=== PATIENT | male | born 1990 | race Native Hawaiian/Other Pacific Islander ===

== ENCOUNTER 2022-02-11 18:50 | Emergency (ER) | payer OTHER ==
[2022-02-11] MEDS ORDERED: LIDOCAINE 1% 2 ML VIAL MC ONE (20:02)
[2022-02-11] MEDS ORDERED: cefTRIAXone 1 GM VIAL IM STA (20:02)
[2022-02-11] MEDS ORDERED: lidocaine 1% 20 ML MDV SUBQ ONE (20:03)
--- NOTE | 2022-02-11 20:07 | ED Physician Documentation ---
History of Present Illness - Stated complaint Stated Complaint: Ulises BURTON INJ - Chief complaint Chief Complaint: Laceration - Additonal information Additional information: 31-year-old male presents emergency department for evaluation of a left small finger injury. He works for the [employer] and was hammering some plates when he missed the plate and struck his finger with a hammer. He does have distal tip ecchymosis and swelling as well as a fracture of the nail itself. Patient is right-hand dominant. Tetanus is up-to-date. Review of Systems Constitutional: denies: Fever, Chills Cardiac: reports: Reviewed and negative Respiratory: reports: Reviewed and negative Musculoskeletal: reports: Extremity pain PD PAST MEDICAL HISTORY - Present Medications Home Medications: Ambulatory Orders Medication Instructions Recorded Confirmed HYDROcod/ACETAM 5/325 [[place] 5/325] 1 tablet PO BID PRN #10 tablet 02/11/22 cephALEXin [Keflex] 500 mg PO Q6H #28 cap 02/11/22 - Allergies Allergies/Adverse Reactions: Allergies Allergy/AdvReac Type Severity Reaction Status Date / Time No Known Drug Allergies Allergy Verified 02/11/22 19:11 PD ED PE EXPANDED - Extremities Extremities: Left finger(s) (Swelling and ecchymosis of the distal small finger beyond the DIP. Laceration and fracture of the nailbed. Neurovascularly intact. Limited ability to flex and extend at DIP) Results - Vitals Vitals: Vital Signs - 24 hr 02/11/22 19:06 Temperature 36.9 C Heart Rate 71 Respiratory 18 Rate Blood Pressure 142/89 H O2 Saturation 99 Oxygen O2 Source Room air - Rads (name of study) left hand Radiology: EMP read indepedently (Comminuted fracture of the fifth distal phalanx) Procedures - General procedure General procedure: After appropriate digital anesthesia of the left small finger using 1% lidocaine the finger was thoroughly cleansed with chlorhexidine and saline. The distal nail was trimmed away to alleviate any bleeding under it. There was no active bleeding on reevaluation, But there is a superficial laceration on the distal nailbed tip. This was not amenable to primary closure as it more resembled a deeper abrasion. The wound was cleansed and dressed with bacitracin and nonstick ointment PD MEDICAL DECISION MAKING - ED course Complexity details: reviewed results, re-evaluated patient, considered differential, d/w patient ED course: 31-year-old male presents emergency department for evaluation of injury to his left small finger when it was accidentally hit with a hammer. On x-ray he does have a comminuted mildly displaced distal phalanx fracture. The nail of the finger had split and a small amount of tissue was poking through it. After appropriate anesthesia the nail was trimmed away. However there is a superficial laceration of the nailbed. We will treat this as an open fracture. Patient was given ceftriaxone here in the emergency department and will be discharged prescription for Keflex and. Limited prescription of [place] will be sent to the pharmacy. Patient is advised To follow-up closely with [facility] as he will require referral to orthopedics. Otherwise emergent return precautions were discussed Departure - Departure Disposition: 01 Home, Self Care Clinical Impression: Phalanx, hand fracture, open Qualifiers: Encounter type: initial encounter Qualified Code(s): S62.609B - Fracture of unspecified phalanx of unspecified finger, initial encounter for open fracture Condition: Stable Record reviewed to determine appropriate education?: Yes Instructions: ED Fx Finger Open Prescriptions: cephALEXin [Keflex] 500 mg PO Q6H #28 cap HYDROcod/ACETAM 5/325 [[place] 5/325] 1 tablet PO BID PRN #10 tablet PRN Reason: Pain Comments: [place] when you hit your finger with the hammer you did break the distal bone in your finger. Unfortunately you also broke the skin under the nail and that this is what we would consider an open fracture at risk for infection. [place] I would like you to follow-up very closely with [facility] tomorrow as you will re quire referral to an orthopedics doctor. In general I would like you to wash your wound with warm soap and water each day and then apply a thin layer of any antibiotic ointment such as Polysporin or bacitracin. Keep your finger in the splint until you are seen by orthopedics. In general I want you to take Tylenol and ibuprofen for pain but for more severe discomfort I [place] I am prescribing a short course of narcotic pain medication for you. These are potentially dangerous and addictive medications that should be used carefully. These medications may constipate you. Take an [id number]-[id number] stool softener (docusate) twice daily with plenty of water while taking these medications. If you go 24 hours without a bowel movement, take [id number] miralax, per package instructions. Do not drink or drive while taking these medications. If you received narcotic or sedating medications while in the emergency department, do not drive for 24 hours. Store this medication in a safe, secure place and out of reach of children. It is a violation of federal law to give or sell this medication to another person or to use in a manner other than prescribed. The ED will not refill narcotic prescriptions, including prescriptions lost or stolen. To dispose of unwanted medications: 1. [facility] at [address] in [place] has a medication drop box. They accept prescription medications (in pill form) Friday through Friday 9:00 a.m. to 5:00 p.m. 2. The [facility] [employer] accepts prescription medications (in pill form only) for disposal year round. Call for more information. 3. Contact the [facility] for the next [facility] sponsored prescription drug collection event. , [phone], or [phone]; Note that many narcotic pain relievers also contain Tylenol/acetaminophen. Please ensure that your total dose of acetaminophen from all sources does not exceed 3 g (3000 mg) per day.
--- NOTE | 2022-02-11 20:08 | XRAY Report ---
PROCEDURE: Hand 3 View LT INDICATIONS: crush injury small finger TECHNIQUE: 3 views of the hand acquired. COMPARISON: None. FINDINGS: Bones: There is a comminuted fracture through the tuft of the fifth distal phalanx. No dislocations. Soft tissues: No suspicious soft tissue calcifications. IMPRESSION: 1. Comminuted fracture of the fifth distal phalanx. Reviewed by: Luigi Murillo MD on 02/11/2022 8:06 PM PDT Approved by: Luigi Murillo MD on 02/11/2022 8:06 PM PDT Station ID: [id number]
[2022-02-11] MEDS ORDERED: HYDROcod/ACET 5/325 Prepack 4 PO STA (20:41)
[2022-02-11 20:54] VITALS: BP 137/92
== END 2022-02-11 21:03 | disposition home or self-care (01) ==
LOC: ED 18:50
DX: S62.609B Fracture of unspecified phalanx of unspecified finger, initial encounter for open fracture (principal); W20.8XXA Other cause of strike by thrown, projected or falling object, initial encounter; Y99.1 Military activity
CPT/HCPCS: 99281; 99283

== ENCOUNTER 2022-02-19 16:44 | Outpatient (CLI) | payer OTHER ==
--- NOTE | 2022-02-19 16:21 | XRAY Report ---
PROCEDURE: Finger(s) LT INDICATIONS: LEFT 5TH FINGER CRUSHING INJURY TECHNIQUE: AP hand, 2 views of the fifth finger(s) acquired. COMPARISON: Plain films dated 02/11/2022 FINDINGS: Bones: No change in moderately displaced comminuted fracture of the distal tuft of the distal pharyn x of the fifth digit. No suspicious bony lesions. Soft tissues: No suspicious soft tissue calcifications. IMPRESSION: No change in fifth digit fracture. Reviewed by: Lexus Carlos MD on 02/19/2022 4:20 PM PST Approved by: Lexus Carlos MD on 02/19/2022 4:20 PM PST Station ID: [id number]
== END 2022-02-19 16:45 | disposition home or self-care (01) ==
LOC: DI.WOS 16:44
PROVIDERS: ATTEND Orthopaedic Surgery
DX: S62.637D Displaced fracture of distal phalanx of left little finger, subsequent encounter for fracture with routine healing (principal)

== ENCOUNTER 2022-03-20 15:13 | Outpatient (CLI) | payer OTHER ==
--- NOTE | 2022-03-20 17:45 | XRAY Report ---
PROCEDURE: Finger(s) LT INDICATIONS: Left 5th digit pain TECHNIQUE: AP hand, 2 views of the left 5th finger(s) acquired. COMPARISON: 02/19/2022 FINDINGS: Comminuted fracture of the left 5th distal phalanx involving the tuft. Alignment is unchanged from pr ior study. IMPRESSION: Unchanged comminuted 5th distal phalangeal tuft fracture. Reviewed by: Lane Blanco MD on 03/20/2022 4:43 PM AKST Approved by: Lane Blanco MD on 03/20/2022 4:43 PM AKST Station ID: [id number]
== END 2022-03-20 15:14 | disposition home or self-care (01) ==
LOC: DI.N 15:13
PROVIDERS: ATTEND Physician Assistant Surgical
DX: S62.637D Displaced fracture of distal phalanx of left little finger, subsequent encounter for fracture with routine healing (principal)

== ENCOUNTER 2022-05-06 15:16 | Emergency (ER) | payer OTHER ==
--- OUTSIDE RECORDS SUMMARY | 2022-05-06 15:31 | EXTERNAL MEDICAL SUMMARY RPT | Continuity of Care Document ---
:1990 Author Organization [facility] Address [address] [place] [address] Phone Care Team Providers Name Role Phone Yolis Carmona Pa-C Unavailable Unavailable Roger Jerry Md Unavailable Unavailable Allergies No information. Encounters No information. Functional Status No information. Immunizations No information. Medications No information. Problems date description facility 2022-02-18 00:00 Pain in finger All 2022-02-18 00:00 Pain in finger All 2022-02-18 00:00 Pain in limb All 2022-02-18 00:00 Pain in limb All 2022-02-18 00:00 Pain in left finger(s) All 2022-02-18 00:00 Pain in left finger(s) All 2022-02-19 00:00 Closed fracture thumb distal phalanx, t uft All 2022-02-19 00:00 Closed fracture thumb distal phalanx, t uft All 2022-02-19 00:00 Closed fracture of distal phalanx or ph alanges of hand All 2022-02-19 00:00 Closed fracture of distal phalanx or ph alanges of hand All 2022-02-19 00:00 Nondisplaced fracture of distal phalanx of left thumb, All initial encounter for closed fracture 2022-02-19 00:00 Nondisplaced fracture of distal phalanx of left thumb, All initial encounter for closed fracture 2022-03-20 00:00 Closed fracture finger distal phalanx, tuft All 2022-03-20 00:00 Closed fracture finger distal phalanx, tuft All 2022-03-20 00:00 Closed fracture of distal phalanx or ph alanges of hand All 2022-03-20 00:00 Closed fracture of distal phalanx or ph alanges of hand All 2022-03-20 00:00 Displaced fracture of distal phalanx of left little All finger, initial encounter for closed fra cture 2022-03-20 00:00 Displaced fracture of distal phalanx of left little All finger, initial encounter for closed fra cture Procedures date description facility 2022-02-18 00:00 XR FINGER 3 VIEW All 2022-02-18 00:00 XR FINGER 3 VIEW All 2022-03-19 00:00 XR FINGER 3 VIEW All Results/Labs No information. Social History date description facility 2022-02-18 00:00 Unknown if ever smoked All 2022-02-19 00:00 Unknown if ever smoked All 2022-02-20 00:00 Unknown if ever smoked All 2022-03-20 00:00 Unknown if ever smoked All 2022-03-21 00:00 Unknown if ever smoked All 2022-04-30 00:00 Unknown if ever smoked All Vital Signs No information.
--- NOTE | 2022-05-06 15:37 | ED Physician Documentation ---
History of Present Illness - Stated complaint Stated Complaint: TOE PX - Chief complaint Chief Complaint: Ext Problem - Additonal information Additional information: 31 -year-old male presents emergency department for evaluation of some pain and redness to all of the toes of both feet. He reports that yesterday evening he was on the couch watching a movie when he began to feel itching in his toes and did not think much of it however later he began to notice that they were swollen and have become a little painful. He does wear hard soled work boots with the ZOZI daily and often reports that his feet are wet throughout the day. He has had no fevers. No history of diabetes. No history of similar. Patient is a good historian Review of Systems Constitutional: reports: Reviewed and negative Cardiac: reports: Reviewed and negative Respiratory: reports: Reviewed and negative Musculoskeletal: reports: Extremity pain PD PAST MEDICAL HISTORY - Past Surgical History Past Surgical History: No - Present Medications Home Medications: Ambulatory Orders Medication Instructions Recorded Confirmed HYDROcod/ACETAM 5/325 [[place] 5/325] 1 tablet PO BID PRN #10 tablet 02/11/22 cephALEXin [Keflex] 500 mg PO Q6H #28 cap 02/11/22 - Allergies Allergies/Adverse Reactions: Allergies Allergy/AdvReac Type Severity Reaction Status Date / Time No Known Drug Allergies Allergy Verified 05/06/22 15:22 - Social History Does the pt smoke?: No Smoking Status: Never smoker - Immunizations Immunizations are current?: Yes PD ED PE EXPANDED - General General: Alert, No acute distress - Extremities Extremities: Other (All the toes of both feet are mildly erythematous. There is some scaling in between the digits. There is no blisters red streaking or s welling.) Results - Vitals Vitals: Vital Signs - 24 hr 05/06/22 15:20 Temperature 36.1 C L Heart Rate 81 Respiratory 16 Rate Blood Pressure 122/80 O2 Saturation 99 Oxygen O2 Source Room air PD Medical Decision Making - ED course Complexity details: considered differential, d/w patient Reviewed Lab Results: 31-year-old male presents emergency department with bilateral feet pain. Began last night as some itching and burning but then became painful and mildly erythematous. Given that this is on both feet I suspect he has a fungal infection or tinea pedis. Clinically this is not consistent with an acute cellulitis. There is no history of trauma therefore imaging would not be beneficial. I discussed the usual routine conservative care for athlete's foot. He is encouraged to follow closely with [facility]. Emergent worrisome return precautions were otherwise discussed Departure - Departure Disposition: 01 Home, Self Care Clinical Impression: Tinea pedis Qualifiers: Laterality: bilateral Qualified Code(s): B35.3 - Tinea pedis Condition: Stable Record reviewed to determine appropriate education?: Yes Instructions: ED Fungal Infec Athlete Foot Comments: You came to the emergency department today because yesterday evening the toes on your right foot began to itch and later they become mildly swollen and now painful on both feet. As we discussed at the bedside I suspect that this is athlete's foot or superficial and fungal infection of your feet. You do work in boots most of the day and this tends to keep the feet warm and wet which is an ample breeding ground for fungus. I encourage you to use miconazole cream or powder and apply it to the toes of both feet twice daily. I also encourage you to bring a change of socks with you to shift and change them while working. When you are at home please allow your feet to air out and dry as much as possible. I am typically with this type of treatment Most athlete's foot will begin to resolve or improve over the course of 1 to 2 weeks but you will likely need to apply the powder or cream for at least 2 weeks after full symptom resolves. Return to the emergency department if you have increased foot swelling, develop any fevers have red streaking or worsening pain. I encourage you to discuss this with [facility] soon as possible.
[2022-05-06 15:41] VITALS: BP 120/80
== END 2022-05-06 15:39 | disposition home or self-care (01) ==
LOC: ED 15:16
DX: B35.3 Tinea pedis (principal)
CPT/HCPCS: 99281; 99282

== ENCOUNTER 2023-07-03 08:58 | Emergency (ER) | payer OTHER ==
[2023-07-03 09:12] VITALS: O2SAT 100
--- NOTE | 2023-07-03 10:58 | ED Physician Documentation ---
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 Patient states he scraped his finger against a Nuts or bolts on a jet. He was unable to get the bleeding to stop overnight and thus presents to the ER. Tetanus is up-to-date. Does not take a blood thinner. Review of Systems Skin: reports: Laceration (s) PD PAST MEDICAL HISTORY - Past Medical History Past Medical History: Yes Psych: Depression - Past Surgical History Past Surgical History: Yes General: Appendectomy - Present Medications Home Medications: Ambulatory Orders Medication Instructions Recorded Confirmed PARoxetine [Paxil] 10 mg PO DAILY 06/16/23 06/16/23 - Allergies Allergies/Adverse Reactions: Allergies Allergy/AdvReac Type Severity Reaction Status Date / Time No Known Drug Allergies Allergy Verified 07/03/23 09:06 - Social History Does the pt smoke?: No Smoking Status: Never smoker Does the pt drink ETOH?: Yes Does the pt have substance abuse?: No - Immunizations Immunizations are current?: Yes PD ED PE NORMAL - General General: Alert and oriented X 3, No acute distress, Well developed/nourished - HEENT HEENT: Atraumatic - Extremities Extremities: Other (Normal range of motion at all digits, 1 cm circular skin defect on distal left fifth finger laterally) Results - Vitals Vitals: Vital Signs - 24 hr 07/03/23 07/03/23 09:00 11:10 Temperature 36.2 C L 36.3 C L Heart Rate 74 72 Respiratory 14 15 Rate Blood Pressure 112/73 115/72 O2 Saturation 100 100 Oxygen O2 Source Room air Procedures - Laceration (location) L little finger Length in cm: 1 Wound type: Irregular (avulsion) Neurovascular status: Sensory intact, Motor intact, Vascular intact Tendon involvement: Tendon intact Wound preparation: Hibiclens, Irrigated copiously NS Skin layer closure: Dermabond Other: Patient tolerated well, No complications, Neurovascular intact, Dressing applied, Tetanus UTD PD Medical Decision Making - ED course ED course: Patient with avulsion laceration to distal left little finger. Neurovascularly intact. Not on a blood thinner. Tetanus is up-to-date. No signs of tendon involvement. After application of a tourniquet the wound was cleaned and closed with a layer of Dermabond. Good hemostasis was noted after tourniquet removal. Dressing was applied. Patient counseled on wound care as well as concerning Symptoms to return for. Departure - Departure Disposition: 01 Home, Self Care Clinical Impression: Laceration of little finger Qualifiers: Encounter type: initial encounter Damage to nail status: without damage Foreign body presence: without foreign body Laterality: left Qualified Code(s): S61.217A - Laceration without foreign body of left little finger without damage to nail, initial encounter Condition: Stable Instructions: ED Laceration Ext Skin Glue Comments: You have a laceration to your left little finger which was repaired with skin glue. Please keep the dressing on for the next 24 hours. Please take caution as this wound heals. Return to the ER with any worsening symptoms. Forms: PCP List, Activity restrictions Discharge Date/Time: 07/03/23 11:10
[2023-07-03 11:14] VITALS: BP 115/72
== END 2023-07-03 11:10 | disposition home or self-care (01) ==
LOC: ED 08:58
DX: S61.217A Laceration without foreign body of left little finger without damage to nail, initial encounter (principal); W27.8XXA Contact with other nonpowered hand tool, initial encounter; Y99.1 Military activity
CPT/HCPCS: 12001; 99283

== ENCOUNTER 2023-07-08 12:51 | Emergency (ER) | payer OTHER ==
[2023-07-08 13:12] VITALS: BP 131/74; O2SAT 100
--- NOTE | 2023-07-08 14:40 | XRAY Report ---
PROCEDURE: Hand 3+V LT INDICATIONS: SWELLING/REDNESS/PAIN L HAND TECHNIQUE: 3 views of the hand(s) acquired. COMPARISON: 03/20/2022. 02/19/2022 and 02/11/2022. FINDINGS: Bones: Likely old deformity involving fifth distal phalangeal tuft is seen also noted on prior studi es in 2021. No acute fracture or dislocation. No gross bony erosive changes. No suspicious bony lesio ns. Soft tissues: No suspicious soft tissue calcifications or masses. IMPRESSION: Old injury involving fifth distal phalangeal tuft. No acute fracture or dislocation. No radiographic evidence of osteomyelitis. Reviewed by: Uriel Majano MD on 07/08/2023 2:39 PM PDT Approved by: Uriel Majano MD on 07/08/2023 2:39 PM PDT Station ID: [id number]
[2023-07-08] MEDS: IBUPROFEN 600 MG TABLET PO STA (15:25)
[2023-07-08] MEDS: ACETAMINOPHEN 325 MG TABLET PO STA (15:25)
--- NOTE | 2023-07-08 15:31 | ED Physician Documentation ---
PD HPI UPPER EXT INJURY - Stated complaint Stated Complaint: LT HAND SWELLING - Chief complaint Chief Complaint: Ext Problem - Additonal information Additional information: 32-year-old male presents emergency department for left hand pain and swelling. Patient was recently seen in our emergency department for a left pinky finger laceration he says since then he has been trying to avoid using his left pinky finger and overcompensating with his left thumb index and middle finger. Patient says that he feels a little bit of pain to the left middle finger last night prior to going to bed he took some Tylenol and was able to sleep without any difficulty but he awoke today and he has been having increased pain to the left hand mostly to the volar aspect along the middle finger as well as the middle knuckle. He says that he is not punched anything there is been no trauma no injuries that he is aware of PD PAST MEDICAL HISTORY - Past Medical History Past Medical History: Yes Cardiovascular: None Respiratory: None Neuro: None Endocrine/Autoimmune: None GI: None : None HEENT: None Psych: Depression Musculoskeletal: None Derm: None - Past Surgical History Past Surgical History: Yes General: Appendectomy - Present Medications Home Medications: Ambulatory Orders Medication Instructions Recorded Confirmed PARoxetine [Paxil] 10 mg PO DAILY 06/16/23 06/16/23 - Allergies Allergies/Adverse Reactions: Allergies Allergy/AdvReac Type Severity Reaction Status Date / Time No Known Drug Allergies Allergy Verified 07/08/23 13:04 - Social History Does the pt smoke?: No Smoking Status: Never smoker Does the pt drink ETOH?: Yes Does the pt have substance abuse?: No - Immunizations Immunizations are current?: Yes - POLST Patient has POLST: No PD ED PE NORMAL - Vitals Vital signs reviewed: Yes - General General: Alert and oriented X 3, No acute distress, Well developed/nourished - Free text exam Free text exam: . Left hand: Full range of motion flexion extension of the left wrist he has tenderness with flexion extension of the left middle finger as well as left index finger. Tenderness with palpation of the dorsal middle knuckle. No abrasions no wounds there is swelling of the left hand that does not extend to the wrist. No snuffbox tenderness No bruising Results - Vitals Vitals: Vital Signs - 24 hr 07/08/23 13:00 Temperature 36.7 C Heart Rate 69 Respiratory 17 Rate Blood Pressure 131/74 H O2 Saturation 100 Oxygen O2 Source Room air - Rads (name of study) Left hand 3 view x-ray Relevant Findings:: Final report received, EMP independent interpretation of test, Other (Old injury to the left distal phalangeal tuft no fractures or dislocations or other acute findings.) PD Medical Decision Making - ED course ED course: 32-year-old male presents emergency department for left hand pain and inflammation. Differentials include fracture, sprain, tendinitis, arthritis. Hand is not warm to the touch So I am not concerned about any sort of bacterial infection Or cellulitis. X-rays were complete it does not reveal any acute findings or abnormalities. I we have the patient is experiencing tendinitis due to overuse of those 3 fingers as he is overcompensating not using his fourth and fifth finger. 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 Patient was placed in a finger immobilizer as well as vale tape with Vin wrap to the left second and third finger. Patient was given Tylenol ibuprofen for pain and discomfort he was told to follow-up with his primary care provider for further evaluation if the pain does not improve after 7 to 10 days for repeat imaging and further evaluation. Patient given work note to rest his hand for couple days from work and given ER return precautions all questions answered safe for discharge. Departure - Departure Disposition: 01 Home, Self Care Clinical Impression: Left hand tendonitis Condition: Good Instructions: Tendonitis and Tenosynovitis Comments: We have completed x-rays of your left hand and do not see any fractures or abnormalities at this point in time. I believe that the pain you are experiencing in your left middle finger is due to something called tendinitis. I believe this is due to overcompensating for your left pinky injury. We have placed a finger splint to the left middle finger with an Vin wrap want you to rest it for the next 24 hours apply ice 20 minutes at a time 1 hour off and alternate between Tylenol and ibuprofen for pain and discomfort you can take 1000 mg of Tylenol every 8 hours and 600 mg of ibuprofen every 6 hours for pain and discomfort. Please follow-up with your primary care provider for further evaluation if the pain has not improved after 7 to 10 days. Make sure that you are taking the splint off periodically over the next couple days and still doing some gentle range of motion exercises to that left middle finger as well as your left hand so that your hand or fingers do not lock up. Please come back to the emergency department if you are noticing severe worsening pain, fevers or chills, or any other concerning symptoms. Wishing you a speedy recovery. Forms: PCP List Discharge Date/Time: 07/08/23 15:45
== END 2023-07-08 15:45 | disposition home or self-care (01) ==
LOC: ED 12:51
DX: M70.842 Other soft tissue disorders related to use, overuse and pressure, left hand (principal)
CPT/HCPCS: 73130; 99283; A9270